=== PATIENT | male | born 2000 | race Caucasian/White ===

== ENCOUNTER 2021-07-25 21:52 | Inpatient (IN) | payer BC, SELFPAY ==
[2021-07-25 22:27] LABS: #Basophils 0.1 thou/uL (0.0-0.2); #Eosinphils 0.1 thou/uL (0.0-0.7); #Lymphocytes 2.8 thou/uL (1.20-3.40); #Monocytes 0.8 thou/uL (0.11-0.59); #Neutrophils 9.8 thou/uL (1.40-6.50); %Basophils 0.7 % (0.0-1.0); %Eosinophils 1.1 % (0.0-10.0); %Lymphocytes 20.6 % (28.0-48.0); %Monocytes 5.9 % (0.0-4.0); %Neutrophils 71.8 % (31.0-61.0); Hemoglobin 16.3 g/dL (14.0-18.0); Mean Corpuscular HGB CONC 34.4 g/dL (32.0-36.0); Mean Corpuscular Hemoglobin 32.1 pg (25.0-35.0); Mean Corpuscular Volume 93.3 fL (78.0-98.0); Mean Platelet Volume 6.2 fL (7.4-10.4); Platelet Count 325 thou/uL (130-400); RBC Distribution Width 11.4 % (11.5-14.5); Red Blood Cell (RBC) Count 5.07 mill/uL (4.00-5.20); White Blood Cell (WBC) Count 13.6 thou/uL (4.8-10.8)
[2021-07-25] MEDS ORDERED: Acetylcysteine 20% (200mg/mL) 15,000 MG in Dextrose 5% in Water 200 ML IV SCH (22:30)
[2021-07-25 22:42] LABS: Alcohol Less than 10 mg/dL (Less than 10); CK (CPK) 162 U/L (30-200); Salicylate Less than 8.0 mg/dL (15.0-30.0)
[2021-07-25] MEDS ORDERED: DEXTROSE 5% IV SCH (23:00)
[2021-07-25] MEDS ORDERED: ACETYLCYSTEINE IV SCH (23:00)
[2021-07-25] MEDS ORDERED: WATER IV SCH (23:00)
[2021-07-25 23:09] LABS: ALT (SGPT) 25 U/L (8-55); AST (SGOT) 22 U/L (5-34); Albumin 4.5 g/dL (3.5-5.0); Alcohol Less than 10 mg/dL (Less than 10); Alkaline Phosphatase 102 U/L (50-130); Anion Gap 15 mmol/L (10-20); BUN (Urea Nitrogen) 13 mg/dL (8.9-20.6); Bilirubin, Total 0.8 mg/dL (0.2-1.2); Calc. Creatinine Clearance 165 mL/min (70-130); Calcium 9.7 mg/dL (7.8-10.44); Carbon Dioxide 25 mmol/L (22-29); Chloride 104 mmol/L (98-107); Globulin 3.5 g/dL (2.4-3.5); Glucose 107 mg/dL (70-105); Potassium 3.8 mmol/L (3.5-5.1); Sodium 140 mmol/L (136-145)
[2021-07-25 23:27] LABS: Amphetamine Not Detected (NotDetected); Barbiturates Screen Not Detected (NotDetected); Benzodiazepine Screen Detected (NotDetected); Cocaine Metabolite Screen Not Detected (NotDetected); Methadone Not Detected (NotDetected); Methamphetamine Not Detected (NotDetected); Opiate Screen Not Detected (NotDetected); Oxycodone Screen Not Detected (NotDetected); Phencyclidine (PCP) Not Detected (NotDetected); THC/Cannabinoid Screen Not Detected (NotDetected); Tricyclic Screen Not Detected (NotDetected)
[2021-07-25 23:39] LABS: Bilirubin Negative (Negative); Blood, Urine Negative (Negative); Clarity Clear (Clear); Glucose, Urine (Dipstick) Normal (Negative); Ketone, Urine Negative (Negative); Leukocyte Negative Leu/uL (Negative); Nitrite Negative (Negative); Protein, Urine (Dipstick) 10 mg/dL (Neg-Trace); Specific Gravity, Urine 1.037 (1.002-1.036); Urobilinogen Normal mg/dL (Less than 2)
[2021-07-26] MEDS ORDERED: Ondansetron PF 4 MG/2 ML Vial ONE (00:11)
[2021-07-26] MEDS ORDERED: Ondansetron ODT 4 MG TAB PO PRN (00:28)
[2021-07-26] MEDS ORDERED: Ondansetron PF 4 MG/2 ML Vial IVP PRN (00:28)
[2021-07-26 02:18] VITALS: BMI 31.3
[2021-07-26] MEDS ORDERED: WATER IV SCH (03:00)
[2021-07-26] MEDS ORDERED: DEXTROSE 5% IV SCH (03:00)
[2021-07-26] MEDS ORDERED: ACETYLCYSTEINE IV SCH (03:00)
[2021-07-26] MEDS: buPROPion HCl 100 MG TAB PO SCH (08:44)
[2021-07-26] MEDS: FLUoxetine HCl 20 MG CAP PO SCH (08:44)
[2021-07-26 20:08] LABS: ALT (SGPT) 22 U/L (8-55); AST (SGOT) 17 U/L (5-34); Acetaminophen Less than 6.0 mcg/mL (10.0-30.0); Albumin 4.4 g/dL (3.5-5.0); Alkaline Phosphatase 90 U/L (50-130); Bilirubin, Direct 0.3 mg/dL (0.1-0.3); Bilirubin, Total 0.7 mg/dL (0.2-1.2); Protein, Total 7.9 g/dL (6.0-8.3)
[2021-07-27] MEDS: buPROPion HCl 100 MG TAB PO SCH (08:40)
[2021-07-27] MEDS: FLUoxetine HCl 20 MG CAP PO SCH (08:40)
[2021-07-27] MEDS ORDERED: FLU VACC QS2021-22(6MOS UP)/PF 60 MCG/0.5 ML SYRINGE IM ONE (09:00)
[2021-07-27 16:12] VITALS: BP 131/79; TEMP 98.3
== END 2021-07-27 19:21 | disposition short-term general hospital (02) | DRG 918 ==
LOC: ERS 21:52 → 2NO 07-26 00:32 → OBSVTOIN 07-26 00:33
PROVIDERS: ADMIT Family Medicine; ATTEND Family Medicine
DX: T39.1X2A Poisoning by 4-Aminophenol derivatives, intentional self-harm, initial encounter (principal); R45.851 Suicidal ideations; F32.A Depression, unspecified; F41.1 Generalized anxiety disorder; K21.9 Gastro-esophageal reflux disease without esophagitis; Y92.9 Unspecified place or not applicable
CPT/HCPCS: 36415; 80053; 80143; 80306; 80307; 81003; 82550; 84443; 85025; 93005; J0132; J2405; J7070